=== PATIENT | female | born 1930 | race Caucasian/White ===

== ENCOUNTER → 2016-10-22 | Outpatient (CLI) | payer MEDICARE, BC ==
--- NOTE | 2016-10-25 16:23 | RADRPT ---
EXAM DATE/TIME: 10/22/2016 16:41 [place] COMPARISON: No previous studies available for comparison. FINDINGS: I have been asked to perform a percutaneous biopsy of small nodule just anterior to the left parotid. This consists of two small 5 mm nodes, in a location that is very difficult to biopsy percutaneously given the location. There is minimal asymmetry to the submandibular glands with the left larger than the right which is o therwise unremarkable. PET scan may help in further evaluation of pathological adenopathy in the neck. Thank you for this consultation. Diogo Myrick MD FACR on October 25, 2016 at 15:11 Board Certified Radiologist. This report was verified electronically.
== END ==
LOC: HRAD 16:36
PROVIDERS: ATTEND Otolaryngology Otolaryngology/Facial Plastic Surgery
DX: R22.9 Localized swelling, mass and lump, unspecified (principal)
CPT/HCPCS: 76140